=== PATIENT | female | born 1980 | race Caucasian/White ===

== ENCOUNTER 2018-06-25 02:36 | Emergency (ER) | payer MEDICAID, OTHER ==
[~2018-06-25] VITALS: Ht 154.9 cm; Wt 61.2 kg
[~2018-06-25 02:36] MED LIST: ACET650S11 RC; HYDR-3974 PO; PANT40VI PO
--- NOTE | 2018-06-25 02:55 | NUR ---
Pt came to emergency room complaining of lower back pain that started at 0100 tonight. Pt states she was unable to sleep. Pt ambulated with steady gait to bed 4. Pt [id number]. Respirations even and unlabored. Pt put on continuous monitoring and awaiting eval from ER MD.
--- NOTE | 2018-06-25 02:58 | NUR ---
DANIA HAWKINS at bedside.
[2018-06-25 03:17] LABS: APPEARANCE,URINE CLEAR (CLEAR); BILIRUBIN,URINE NEGATIVE (NEGATIVE); BLOOD, URINE TRACE Ery/uL (NEGATIVE); COLOR,URINE YELLOW (YELLOW); KETONES,URINE NEGATIVE (NEGATIVE); LEUKOCYTE ESTERASE ,URINE NEGATIVE (NEGATIVE); NITRITE, URINE NEGATIVE (NEGATIVE); PROTEIN,URINE NEGATIVE (NEGATIVE); UGLUCOSE NEGATIVE (NEGATIVE); UROBILINOGEN,URINE 0.2 EU/dL (0.2)
[2018-06-25 03:21] LABS: BACTERIA,URINE Rare /HPF (None Seen); RBC,URINE 0-2 /HPF (0-2); SQUAMOUS EPITHELIAL CELL,UR Rare /HPF (None Seen); WBC,URINE 0-2 /HPF (0-3)
--- NOTE | 2018-06-25 03:57 | NUR ---
Patient discharged to home in stable condition. Written and verbal after care instructions given. Patient verbalizes understanding of instruction.
[2018-06-25 03:59] VITALS: BP 145/88
== END 2018-06-25 04:00 | disposition home or self-care (01) ==
LOC: ER 02:38
DX: M79.18 Myalgia, other site (principal); Z98.890 Other specified postprocedural states
CPT/HCPCS: 81001; 84703; 99283; A4606; Z7610; 81000-TC

== ENCOUNTER 2020-01-01 23:40 | Emergency (ER) | payer MEDICAID ==
[~2020-01-01] VITALS: Ht 157.5 cm; Wt 65.8 kg
[2020-01-01 23:44] VITALS: BP 160/98
[2020-01-02] MEDS ORDERED: CEPHALEXIN MONOHYDRATE 500 MG CAPSULE PO ONE ×2 (00:05→00:30)
[2020-01-02] MEDS ORDERED: predniSONE 20 MG TABLET ONE (00:05)
--- NOTE | 2020-01-02 00:14 | NUR ---
Patient discharged to home in stable condition. Written and verbal after care instructions given. Patient verbalizes understanding of instruction.
[2020-01-02] MEDS ORDERED: predniSONE 20 MG TABLET PO ONE (00:30)
== END 2020-01-02 00:16 | disposition home or self-care (01) ==
LOC: ER 23:45
DX: L03.211 Cellulitis of face (principal); K21.9 Gastro-esophageal reflux disease without esophagitis; Z98.890 Other specified postprocedural states; Z79.899 Other long term (current) drug therapy
CPT/HCPCS: 99283; J7512

== ENCOUNTER 2020-01-03 14:26 | Emergency (ER) | payer MEDICAID ==
[~2020-01-03] VITALS: Ht 157.5 cm; Wt 72.6 kg
[2020-01-03 14:42] VITALS: BP 126/64
--- NOTE | 2020-01-03 15:07 | NUR ---
Patient discharged to home in stable condition. Written and verbal after care instructions given. Patient verbalizes understanding of instruction.
== END 2020-01-03 15:08 | disposition home or self-care (01) ==
LOC: ER 14:33
DX: L03.211 Cellulitis of face (principal); T36.1X5A Adverse effect of cephalosporins and other beta-lactam antibiotics, initial encounter; T38.0X5A Adverse effect of glucocorticoids and synthetic analogues, initial encounter; K21.9 Gastro-esophageal reflux disease without esophagitis; Z98.890 Other specified postprocedural states; Z79.899 Other long term (current) drug therapy; Y92.89 Other specified places as the place of occurrence of the external cause